=== PATIENT | male | born 1945 | race Caucasian/White ===

== ENCOUNTER 2020-07-05 09:42 | Emergency (ER) | payer BC, MEDICARE ==
[~2020-07-05] VITALS: Ht 182.9 cm; Wt 87.1 kg
[2020-07-05] MEDS ORDERED: MORPHINE SULFATE INJ 2 MG/ML DISP.SYRIN IV ONE (10:00)
[2020-07-05] MEDS ORDERED: IV NS 0.9% 500 ML BAG IV ONE (10:00)
[2020-07-05] MEDS ORDERED: ONDANSETRON HCL/PF 4 MG/2 ML VIAL IVP ONE (10:00)
--- NOTE | 2020-07-05 10:00 | NUR ---
ABDOMINAL PAIN SINCE HE WOKE UP THIS MORNING. PATIENT A/OX4, BREATHING EVEN AND UNLABORED, NO SOB NOTED, NEEDS ATTENDED. KEPT COMFORTABLE. CHANGED INTO A GOWN.
[2020-07-05] MEDS ORDERED: ONDANSETRON HCL/PF 4 MG/2 ML VIAL ONE (10:29)
[2020-07-05] MEDS ORDERED: MORPHINE SULFATE INJ 4 MG/ML DISP.SYRIN ONE (10:29)
[2020-07-05] MEDS ORDERED: KETOROLAC TROMETHAMINE INJ 30 MG/ML VIAL ONE (10:40)
[2020-07-05 10:50] LABS: HEMOGLOBIN 14.7 g/dL (13.5-17.5); NEUTROPHILS # (AUTO) 7.1 /CMM (1.8-8.9)
[2020-07-05 10:53] LABS: BASOPHILS % (AUTO) 0.3 % (0.0-2.0); EOSINOPHILS % (AUTO) 0.4 % (0.0-6.0); HEMATOCRIT 45 % (39-51); LYMPHOCYTES # (AUTO) 1.5 /CMM (0.8-4.8); LYMPHOCYTES % (AUTO) 16.1 % (20.0-44.0); MEAN CORPUSCULAR HGB CONC 33 g/dl (31.0-36.0); MEAN CORPUSCULAR VOLUME 88 fL (80-96); MONOCYTES # (AUTO) 0.7 /CMM (0.1-1.30); MONOCYTES % (AUTO) 7.1 % (2.0-12.0); NEUTROPHILS % (AUTO) 76.1 % (43.0-81.0); PLATELET COUNT (AUTO) 223 /CMM (150-450); RED BLOOD CELL COUNT(AUTO) 5.07 MIL/uL (4.5-6.0); WHITE BLOOD COUNT (AUTO) 9.3 K/uL (4.3-11.0)
[2020-07-05] MEDS ORDERED: KETOROLAC TROMETHAMINE INJ 30 MG/ML VIAL IV ONE (11:00)
[2020-07-05 11:08] LABS: ALBUMIN 4.1 g/dL (3.4-5.0); BILIRUBIN,DIRECT 0.2 mg/dL (0.0-0.2); BILIRUBIN,TOTAL 0.7 mg/dL (0.2-1.0); CALCIUM, SERUM 9.5 mg/dL (8.5-10.1); CREATININE 1.3 mg/dL (0.6-1.3); POTASSIUM 4.3 mmol/L (3.5-5.1); TOTAL PROTEIN, SERUM 7.5 g/dL (6.4-8.2)
--- NOTE | 2020-07-05 11:23 | NUR ---
PATIENT'S PAIN HAS IMPROVED PER PATIENT. PS 1/10. NO DISTRESS NOTED.
[2020-07-05] MEDS ORDERED: IBUP-1953 PO (11:39)
[2020-07-05] MEDS ORDERED: HYDR-3976 GT (11:39)
--- NOTE | 2020-07-05 11:53 | NUR ---
PATIENT A/OX4, BREATHING EVEN AND UNLABORED, NO SOB NOTED. DENIES PAIN AT THIS TIME. AMBULATORY WITH STEADY GAIT. IV removed. Catheter intact and site benign. Pressure and 4x4 applied to site. No bleeding noted.Patient discharged to home in stable condition. Written and verbal after care instructions given. Patient verbalizes understanding of instruction. in the car.
[2020-07-05 11:54] VITALS: BP 145/85
== END 2020-07-05 11:55 | disposition home or self-care (01) ==
LOC: ER 09:49
DX: N20.0 Calculus of kidney (principal); E11.9 Type 2 diabetes mellitus without complications
CPT/HCPCS: 74176; 80048; 80076; 83690; 85025; 96374; 96375; 99284; J1885; J2270; J2405; J7040

== ENCOUNTER 2022-01-28 11:02 | Emergency (ER) | payer BC ==
[~2022-01-28] VITALS: Ht 182.9 cm; Wt 86.2 kg
[~2022-01-28 11:02] MED LIST: HYDR-3976 GT; IBUP-1953 PO
[2022-01-28 12:01] VITALS: BP 131/75
== END 2022-01-28 14:35 | disposition home or self-care (01) ==
LOC: ER 11:04
DX: U07.1 COVID-19 (principal)
CPT/HCPCS: 99283; 87426; C9803

== ENCOUNTER 2022-08-17 14:54 | Emergency (ER) | payer BC, OTHER ==
[~2022-08-17] VITALS: Ht 182.9 cm; Wt 82.6 kg
--- NOTE | 2022-08-17 15:27 | NUR ---
UA COLLECTED AND SENT TO LAB
--- NOTE | 2022-08-17 15:40 | NUR ---
DR. WYNNE AT BEDSIDE
[2022-08-17] MEDS ORDERED: LIDOCAINE VISCOUS 2% UD 15 ML UDC ONE (15:45)
[2022-08-17] MEDS ORDERED: MAG HYDROX/AL HYDROX/SIMETH 30 ML UDC ONE (15:45)
[2022-08-17] MEDS ORDERED: MAG HYDROX/AL HYDROX/SIMETH 30 ML UDC PO ONE (16:00)
[2022-08-17] MEDS ORDERED: LIDOCAINE VISCOUS 2% UD 15 ML UDC MM ONE (16:00)
--- NOTE | 2022-08-17 16:00 | NUR ---
IV ESTABLISHED. L FA 20G
--- NOTE | 2022-08-17 16:00 | NUR ---
BLOOD DRAWN AND SENT TO LAB
[2022-08-17 16:12] LABS: BASOPHILS % (AUTO) 0.2 % (0.0-2.0); EOSINOPHILS % (AUTO) 3.3 % (0.0-6.0); HEMATOCRIT 45 % (39-51); HEMOGLOBIN 14.7 g/dL (13.5-17.5); LYMPHOCYTES # (AUTO) 1.6 K/uL (0.8-4.8); LYMPHOCYTES % (AUTO) 22.3 % (20.0-44.0); MEAN CORPUSCULAR HGB CONC 33 g/dl (31.0-36.0); MEAN CORPUSCULAR VOLUME 86 fL (80-96); MONOCYTES # (AUTO) 0.7 K/uL (0.1-1.30); MONOCYTES % (AUTO) 9.4 % (2.0-12.0); NEUTROPHILS # (AUTO) 4.5 K/uL (1.8-8.9); NEUTROPHILS % (AUTO) 64.8 % (43.0-81.0); PLATELET COUNT (AUTO) 246 K/uL (150-450); RED BLOOD CELL COUNT(AUTO) 5.24 MIL/uL (4.5-6.0)
[2022-08-17 16:21] LABS: BILIRUBIN,URINE 1+ (NEGATIVE); COLOR,URINE YELLOW (YELLOW); LEUKOCYTE ESTERASE ,URINE NEGATIVE (NEGATIVE); NITRITE, URINE POSITIVE (NEGATIVE); PH,URINE 5.5 (5.0-8.0); PROTEIN,URINE NEGATIVE (NEGATIVE); UGLUCOSE NEGATIVE (NEGATIVE); UROBILINOGEN,URINE 0.2 EU/dL (0.2)
--- NOTE | 2022-08-17 16:30 | NUR ---
CALLED [facility] [phone] [place] REQUESTING FAX OF FACESHEET TO [phone]
[2022-08-17 16:33] LABS: BACTERIA,URINE Few /HPF (None Seen); RBC,URINE 0-2 /HPF (0-2); SQUAMOUS EPITHELIAL CELL,UR Few /HPF (None Seen); WBC,URINE 0-2 /HPF (0-3)
[2022-08-17] MEDS ORDERED: IOHEXOL-350 100 ML VIAL IV ONE (16:35)
[2022-08-17] MEDS ORDERED: IV NS 0.9% 250 ML IV ONE (16:35)
--- NOTE | 2022-08-17 16:42 | NUR ---
CALLED [facility] TRANSFER [phone] JOSE CARLOS REQUESTING CLINICALS FAXED TO [phone]
--- NOTE | 2022-08-17 16:42 | NUR ---
IV ESTABLISHED TONY 18G
[2022-08-17 16:43] LABS: CALCIUM, SERUM 9.5 mg/dL (8.5-10.1); CARBON DIOXIDE 32 mmol/L (21-32); CHLORIDE 102 mmol/L (98-107); CREATININE 1.1 mg/dL (0.6-1.3); GLUCOSE 157 mg/dL (74-106); POTASSIUM 4.8 mmol/L (3.5-5.1); SODIUM SERUM 138 mmol/L (136-145); UREA NITROGEN, BLOOD 15 mg/dL (7-18)
[2022-08-17 16:47] LABS: ALANINE AMINOTRANSFERASE 42 U/L (12-78); ALBUMIN 3.9 g/dL (3.4-5.0); ALKALINE PHOSPHATASE 91 U/L (46-116); ASPARTATE AMINOTRANSFERASE 21 U/L (15-37); BILIRUBIN,DIRECT 0.1 mg/dL (0.0-0.2); BILIRUBIN,TOTAL 0.5 mg/dL (0.2-1.0); TOTAL PROTEIN, SERUM 7.5 g/dL (6.4-8.2)
--- NOTE | 2022-08-17 16:56 | NUR ---
NELLA FROM [facility] SPEAKING WITH DR. CASTAÑEDA.
--- NOTE | 2022-08-17 17:00 | NUR ---
PATIENT GOING TO CT
--- NOTE | 2022-08-17 17:05 | NUR ---
PATIENT TAKEN TO CT VIA [facility]
--- NOTE | 2022-08-17 17:13 | NUR ---
PATIENT CAME BACK FROM CT
--- NOTE | 2022-08-17 18:27 | NUR ---
FAXED CLINICALS TO [facility].
--- NOTE | 2022-08-17 18:44 | NUR ---
CONFIRMED THAT [facility] HAS THE CLINICALS. SPOKE WITH
--- NOTE | 2022-08-17 18:52 | NUR ---
DR. CASTAÑEDA AT BEDSIDE
--- NOTE | 2022-08-17 19:13 | NUR ---
[facility] CALLED, DR. CAMPO SPEAKING WITH DR. CASTAÑEDA.
--- NOTE | 2022-08-17 19:16 | NUR ---
REPORT GIVEN TO AMY FOR CONTINUATION OF CARE
[2022-08-17 19:35] LABS: LIPASE 69 U/L (73-393)
--- NOTE | 2022-08-17 19:55 | NUR ---
[facility] [place] [facility] TRANSFER CENTER [facility] AT CAPACITY. AND DR JAHAIRA NIELSEN ACCEPT PT. SUGGESTED PT TO [facility] VASCULAR CLINIC TEAM VIA OUTPATIENT [phone] JOSE JUAN ZAMBRANO [address] NELLI SCHMITT
--- NOTE | 2022-08-17 20:09 | NUR ---
[facility]SF[facility] CALLED FOR HIGHER LEVEL OF CARE. PER [place] , NO CAPACITY,. CLINICALS FAXED TO TRANSFER CENTER.
--- NOTE | 2022-08-17 20:20 | NUR ---
[facility] PAGED FOR HIGHER LEVEL OF CARE. FACESHEET AND CLINICALS FAXED.
--- NOTE | 2022-08-17 20:45 | NUR ---
[facility] TRANSFER CENTER CALLED FOR HIGHER LEVEL OF CARE.
--- NOTE | 2022-08-17 23:25 | NUR ---
[facility] QUEZADA CALL FOR REPORT #[phone]
--- NOTE | 2022-08-17 23:48 | NUR ---
CALLED [facility] FOR TRANSPORTATION ETA 3AM
--- NOTE | 2022-08-17 23:48 | NUR ---
CALLED [facility] FOR TRANSPORTATION ETA IS 7AM
--- NOTE | 2022-08-18 01:12 | NUR ---
REPORT GIVEN TO SUSAN TRIPLETT FROM [facility]
[2022-08-18 01:26] VITALS: BP 128/71
--- NOTE | 2022-08-18 01:26 | NUR ---
REPORT GIVEN TO EMT OF [facility] TO TRANSFER PT TO [facility]. VSS. ALL BELONGINGS WITH PT
== END 2022-08-18 02:15 | disposition short-term general hospital (02) ==
LOC: ER 14:57
DX: I71.33 Infrarenal abdominal aortic aneurysm, ruptured (principal); E11.9 Type 2 diabetes mellitus without complications; Z20.822 Contact with and (suspected) exposure to COVID-19; Z79.899 Other long term (current) drug therapy
CPT/HCPCS: 99291; 74175; 87426; 93005; 76775; 71275; 74176; 85025; 80048; 87086; 83690; 80076; 85610; 85730; 81001; 36415; 84484; J7050; Q9967; C9803

== ENCOUNTER 2023-09-06 13:08 | Inpatient (IN) | payer BC, MEDICARE ==
[~2023-09-06] VITALS: Ht 182.9 cm; Wt 86.2 kg
[2023-09-06] MEDS ORDERED: CT SWABBABLE VALVE TRANS SET 1 EA INFUS.SET MC ONE (14:29)
[2023-09-06] MEDS ORDERED: IOHEXOL-350 100 ML VIAL IV ONE (14:29)
[2023-09-06 14:30] LABS: BASOPHILS % (AUTO) 0.4 % (0.0-2.0); EOSINOPHILS # (AUTO) 0.3 K/uL (0.0-0.7); EOSINOPHILS % (AUTO) 4.6 % (0.0-6.0); HEMATOCRIT 45 % (39-51); LYMPHOCYTES # (AUTO) 1.2 K/uL (0.8-4.8); LYMPHOCYTES % (AUTO) 22.1 % (20.0-44.0); MEAN CORPUSCULAR HEMOGLOBIN 28 PG (26.0-33.0); MEAN CORPUSCULAR HGB CONC 34 g/dl (31.0-36.0); MEAN CORPUSCULAR VOLUME 85 fL (80-96); MONOCYTES # (AUTO) 0.4 K/uL (0.1-1.30); MONOCYTES % (AUTO) 7.5 % (2.0-12.0); NEUTROPHILS # (AUTO) 3.6 K/uL (1.8-8.9); NEUTROPHILS % (AUTO) 65.4 % (43.0-81.0); PLATELET COUNT (AUTO) 234 K/uL (150-450); RED BLOOD CELL COUNT(AUTO) 5.27 MIL/uL (4.5-6.0); RED CELL DISTRIBUTION WIDTH 14.2 % (11.5-15.0); WHITE BLOOD COUNT (AUTO) 5.5 K/uL (4.3-11.0)
[2023-09-06 14:42] LABS: CALCIUM, SERUM 9.4 mg/dL (8.5-10.1); CARBON DIOXIDE 25 mmol/L (21-32); CHLORIDE 100 mmol/L (98-107); GLUCOSE 140 mg/dL (74-106); POTASSIUM 4.3 mmol/L (3.5-5.1); SODIUM SERUM 134 mmol/L (136-145); UREA NITROGEN, BLOOD 18 mg/dL (7-18)
[2023-09-06 14:59] LABS: INR 0.96 (0.91-1.10); PARTIAL THROMBOPLASTIN TIME 25.3 SEC (24.3-34.3); PROTHROMBIN TIME 9.9 SECS (9.2-11.1)
[2023-09-06] MEDS ORDERED: METF-440 PO (16:16)
[2023-09-06 18:30] VITALS: BP 167/94; TEMP 98.4; O2SAT 99
[2023-09-06 20:00] VITALS: BP 163/94; TEMP 98.2; O2SAT 97
[2023-09-06] MEDS ORDERED: DEXTROSE 50%-WATER 50 ML DISP.SYRIN IV PRN (20:00)
[2023-09-06] MEDS ORDERED: ONDANSETRON HCL/PF 4 MG/2 ML VIAL IVP PRN (20:00)
[2023-09-06] MEDS ORDERED: Z GUARD REMEDY 4 OZ OINT TP PRN (20:00)
[2023-09-06] MEDS ORDERED: ACETAMINOPHEN 325 MG TABLET PO PRN (20:00)
[2023-09-06] MEDS: ATORVASTATIN 40 MG TABLET PO SCH (21:16)
[2023-09-06] MEDS: ENOXAPARIN SODIUM 40 MG/0.4 ML DISP.SYRIN SQ SCH (21:18)
[2023-09-06] MEDS: BLOOD SUGAR DIAGNOSTIC 1 EACH STRIP IN SCH (22:20)
[2023-09-06] MEDS: INSULIN REGULAR, HUMAN 100 UNIT/ML 3 ML VIAL SQ PRN (22:26)
[2023-09-07] VITALS: BP 167/94; TEMP 98.2; O2SAT 96
[2023-09-07] MEDS: hydrALAZINE HCL 25 MG TABLET PO ONE (03:00)
[2023-09-07 04:00] VITALS: BP 149/84; TEMP 98.3; O2SAT 98
[2023-09-07 04:43] VITALS: BP 149/84; TEMP 98.3; O2SAT 98
[2023-09-07 06:41] LABS: BASOPHILS % (AUTO) 0.4 % (0.0-2.0); EOSINOPHILS # (AUTO) 0.4 K/uL (0.0-0.7); EOSINOPHILS % (AUTO) 7.1 % (0.0-6.0); HEMATOCRIT 42 % (39-51); HEMOGLOBIN 14.2 g/dL (13.5-17.5); LYMPHOCYTES # (AUTO) 1.8 K/uL (0.8-4.8); LYMPHOCYTES % (AUTO) 31.6 % (20.0-44.0); MEAN CORPUSCULAR HEMOGLOBIN 29 PG (26.0-33.0); MEAN CORPUSCULAR HGB CONC 34 g/dl (31.0-36.0); MEAN CORPUSCULAR VOLUME 86 fL (80-96); MONOCYTES # (AUTO) 0.6 K/uL (0.1-1.30); MONOCYTES % (AUTO) 10.6 % (2.0-12.0); NEUTROPHILS # (AUTO) 2.9 K/uL (1.8-8.9); NEUTROPHILS % (AUTO) 50.3 % (43.0-81.0); PLATELET COUNT (AUTO) 215 K/uL (150-450); RED BLOOD CELL COUNT(AUTO) 4.91 MIL/uL (4.5-6.0); RED CELL DISTRIBUTION WIDTH 13.8 % (11.5-15.0); WHITE BLOOD COUNT (AUTO) 5.7 K/uL (4.3-11.0)
[2023-09-07 06:49] LABS: ALBUMIN 3.4 g/dL (3.4-5.0); BILIRUBIN,DIRECT 0.1 mg/dL (0.0-0.2); BILIRUBIN,TOTAL 0.5 mg/dL (0.2-1.0); CALCIUM, SERUM 8.8 mg/dL (8.5-10.1); CREATININE 1.1 mg/dL (0.6-1.3); MAGNESIUM 1.7 mg/dL (1.8-2.4); PHOSPHORUS 3.7 mg/dL (2.5-4.9); POTASSIUM 3.7 mmol/L (3.5-5.1); TOTAL PROTEIN, SERUM 6.9 g/dL (6.4-8.2)
[2023-09-07 07:00] LABS: THYROID STIMULATING HORMONE 5.722 uIU/mL (0.358-3.74)
[2023-09-07 07:30] VITALS: BP 142/90; TEMP 97.5; O2SAT 97
[2023-09-07] MEDS: ASPIRIN EC 81 MG TABLET.DR PO SCH (09:11)
[2023-09-07] MEDS: PANTOPRAZOLE 40 MG TABLET.DR PO SCH (09:14)
[2023-09-07] MEDS: MAGNESIUM OXIDE 400 MG TABLET PO ONE (12:22)
[2023-09-07] MEDS ORDERED: ASPI-1420 PO (21:17)
[2023-09-07] MEDS ORDERED: AMLO5TAB4 PO (21:17)
[2023-09-07] MEDS ORDERED: ATOR40TA PO (21:17)
== END 2023-09-07 15:52 | disposition home or self-care (01) | DRG 71 ==
LOC: ER 13:25 → TELE 17:47
PROVIDERS: ADMIT Nurse Practitioner Family; ATTEND Nurse Practitioner Family
DX: G45.4 Transient global amnesia (principal); E87.1 Hypo-osmolality and hyponatremia; G81.91 Hemiplegia, unspecified affecting right dominant side; Q28.1 Other malformations of precerebral vessels; E11.9 Type 2 diabetes mellitus without complications; Z79.84 Long term (current) use of oral hypoglycemic drugs; R29.700 NIHSS score 0; Z86.79 Personal history of other diseases of the circulatory system; E11.65 Type 2 diabetes mellitus with hyperglycemia; Z79.82 Long term (current) use of aspirin; Z79.899 Other long term (current) drug therapy; Z95.828 Presence of other vascular implants and grafts; G43.909 Migraine, unspecified, not intractable, without status migrainosus; G14 Postpolio syndrome; M62.50 Muscle wasting and atrophy, not elsewhere classified, unspecified site
CPT/HCPCS: 36415; 70450-TC; 70496-TC; 70498-TC; 70551-TC; 80048-TC; 80061-TC; 80076-TC; 82607-TC; 82962-TC; 83735-TC; 84100-TC; 84439-TC; 84443-TC; 84484-TC; 85025-TC; 85730-TC; 92526; 92611-TC; 93307-TC; 95819-TC; 97112-TC; 97116-TC; 97530-TC; 97535-TC; G0378; J1650; J1815; Q9967